=== PATIENT | female | born 1960 | race Caucasian/White ===

== ENCOUNTER 2018-01-21 10:42 | Emergency (ER) | payer OTHER ==
[~2018-01-21] VITALS: Ht 157.5 cm; Wt 64.4 kg
== END 2018-01-21 14:42 | disposition home or self-care (01) ==
LOC: ER 10:42
DX: N83.292 Other ovarian cyst, left side (principal)

== ENCOUNTER 2018-08-10 07:12 | Emergency (ER) | payer OTHER ==
[~2018-08-10] VITALS: Ht 157.5 cm; Wt 58.1 kg
[2018-08-10] MEDS ORDERED: ELAVIL (07:51)
[2018-08-10] MEDS ORDERED: KETO10TA2 PO (14:22)
[2018-08-10] MEDS ORDERED: PEPCID AC20 MG PO (14:22)
== END 2018-08-10 14:45 ==
LOC: ER 07:12
DX: N83.292 Other ovarian cyst, left side (principal); R10.32 Left lower quadrant pain